=== PATIENT | female | born 1980 | race Caucasian/White ===

== ENCOUNTER 2018-02-26 18:48 | Emergency (ER) | payer MEDICAID ==
[~2018-02-26] VITALS: Ht 157.5 cm; Wt 80.7 kg
[2018-02-26 19:07] VITALS: BP 127/58
--- NOTE | 2018-02-26 20:42 | NUR ---
PT TO ER BED 2
--- NOTE | 2018-02-26 20:45 | NUR ---
37 Y/O F W/C/O MID ABDOMINLA PAIN /, VAGINAL YELLOWISH DISCHARGE, A LITTLE PAINFUL URINATION, WANTED TO BE TESTED FOR HIV, STD;PT DENIES N/V/D; SKIN IS INTACT, PINK/WARM/DRY; AAOX4, PERRL, WITH EVEN AND STEADY GAIT; LUNGS CLEAR BL, BREATHING UNLABORED; HR EVEN AND REGULAR, BL PERIPHERAL PULSES PRESENT; BS ACTIVE X4, NO TENDERNESS TO PALPATION, NO HEPATOSPLENOMEGALLY PALPATED, RESONANT TO PERCUSSION; PT DENIES ANY FEVER, CP, SOB, OR COUGH AT THIS TIME; PT STATES /10 PAIN AT THIS TIME; VSS; PATIENT POSITIONED FOR COMFORT; HOB ELEVATED; BEDRAILS UP X2; BED DOWN. HX; DENIES RX; DENIES
--- NOTE | 2018-02-26 21:40 | NUR ---
DR. ULLOA EVALUATING PT AT THE BEDSIDE
--- NOTE | 2018-02-26 22:12 | NUR ---
PT RESTING COMFORTABLY IN BED. NO S/S OF DISTRESS NOTED
[2018-02-26 22:34] VITALS: BP 122/68
--- NOTE | 2018-02-26 22:35 | NUR ---
Patient discharged with v/s stable. Written and verbal after care instructions given and explained. Patient verbalized understanding. Ambulatory with steady gait. All questions addressed prior to discharge. Advised to follow up with PMD.
[2018-03-01 06:24] LABS: CHLAMYDIA TRACHOMATIS AMP DNA Negative (Negative)
== END 2018-02-26 22:34 | disposition home or self-care (01) ==
LOC: MED 18:48
DX: Z11.3 Encounter for screening for infections with a predominantly sexual mode of transmission (principal); N89.8 Other specified noninflammatory disorders of vagina; F31.9 Bipolar disorder, unspecified; I10 Essential (primary) hypertension; Z86.73 Personal history of transient ischemic attack (TIA), and cerebral infarction without residual deficits
CPT/HCPCS: 36415; 81002; 81025; 86702; 87491; 99284

== ENCOUNTER 2020-02-14 06:23 | Emergency (ER) | payer SELFPAY ==
[~2020-02-14] VITALS: Ht 157.5 cm; Wt 67.6 kg
[2020-02-14 06:24] VITALS: BP 123/97
--- NOTE | 2020-02-14 06:35 | NUR ---
PT TAKEN TO BED 6
--- NOTE | 2020-02-14 07:07 | NUR ---
PT LYING IN BED TALKING TO SELF AND INTERACTING WITH INTERNAL STIMULI. NO ACUTE DISTRESS AT THIS TIME.
--- NOTE | 2020-02-14 07:11 | NUR ---
AMBULATES TO WITH STEADY GAIT.
--- NOTE | 2020-02-14 07:21 | NUR ---
REPORT GIVEN TO WALTER SPENCER. TRANSFER OF CARE AT THIS TIME.
--- NOTE | 2020-02-14 07:22 | NUR ---
REPORT RECEIVED FROM WALTER PEPPER.
[2020-02-14 08:08] LABS: BASOPHILS % (AUTO) 0.4 % (0.0-2.0); EOSINOPHILS # (AUTO) 0.1 K/uL (0-0.4); EOSINOPHILS % (AUTO) 2.2 % (0.0-4.0); HEMATOCRIT 31.8 % (36-48); HEMOGLOBIN 10.3 g/dL (12.0-16.0); LYMPHOCYTES # (AUTO) 1.9 K/uL (2.5-16.5); LYMPHOCYTES % (AUTO) 33.8 % (20.5-51.1); MEAN CORPUSCULAR HEMOGLOBIN 26 pg (27-31); MEAN CORPUSCULAR HGB CONC 33 g/dL (33-37); MONOCYTES # (AUTO) 0.9 K/uL (0.8-1.0); MONOCYTES % (AUTO) 16.2 % (1.7-9.3); NEUTROPHILS # (AUTO) 2.6 K/uL (1.8-7.7); NEUTROPHILS % (AUTO) 47.4 % (42.2-75.2); PLATELET COUNT (AUTO) 270 K/uL (140-450); RED BLOOD CELL COUNT(AUTO) 3.93 MIL/uL (4.20-5.40); RED CELL DISTRIBUTION WIDTH 16.9 % (11.6-13.7); WHITE BLOOD COUNT (AUTO) 5.6 K/uL (4.8-10.8)
--- NOTE | 2020-02-14 08:20 | NUR ---
PT EATING BREAKFAST, TOLERATING WELL.
[2020-02-14 08:43] LABS: ALBUMIN 3.6 g/dL (3.4-5.0); ANION GAP 11.5 (8-16); ASPARTATE AMINOTRANSFERASE 25 U/L (15-37); CARBON DIOXIDE 25.5 mmol/L (21-32); CHLORIDE 102 mmol/L (98-107); CREATININE 0.7 mg/dL (0.6-1.3); GFR ARICAN-AMERICAN 120 mL/min (>90); GLUCOSE 84 mg/dL (74-106); SODIUM SERUM 136 mmol/L (136-145); TOTAL BILIRUBIN 0.7 mg/dL (0.0-1.0); UREA NITROGEN, BLOOD 18 mg/dL (7-18)
--- NOTE | 2020-02-14 10:10 | NUR ---
URINE SAMPLE OBTAINED AND SENT TO THE LAB.
[2020-02-14 10:20] LABS: APPEARANCE,URINE CLEAR (CLEAR); BILIRUBIN,URINE NEGATIVE (NEGATIVE); BLOOD, URINE NEGATIVE (NEGATIVE); COLOR,URINE YELLOW (YELLOW); LEUKOCYTE ESTERASE ,URINE NEGATIVE (NEGATIVE); NITRITE, URINE NEGATIVE (NEGATIVE); UGLUCOSE NEGATIVE (NEGATIVE)
[2020-02-14 10:34] LABS: BARBITURATE, URINE NEGATIVE ng/ml (NEG <=200); BENZODIAZEPINE, URINE NEGATIVE ng/mL (NEG <=200); CANNABINOID, URINE NEGATIVE ng/mL (NEG <=50); COCAINE, URINE NEGATIVE ng/mL (NEG <=300); OPIATE, URINE NEGATIVE ng/mL (NEG <=2000); PHENCYCLIDINE SCREEN,URINE NEGATIVE ng/mL (NEG <=25)
[2020-02-14 10:53] VITALS: BP 118/95
== END 2020-02-14 10:53 | disposition home or self-care (01) ==
LOC: MED 06:23
DX: F41.9 Anxiety disorder, unspecified (principal); I11.0 Hypertensive heart disease with heart failure
CPT/HCPCS: 36415; 80053; 80305; 81003; 85025; 99283; G0482

== ENCOUNTER 2021-11-01 22:31 | Emergency (ER) | payer MEDICAID ==
[~2021-11-01] VITALS: Ht 162.6 cm; Wt 68.0 kg
[2021-11-01 22:40] VITALS: BP 145/115
[2021-11-01] MEDS ORDERED: diphenhydrAMINE 50 MG/ML VIAL ONE (23:55)
[2021-11-01] MEDS ORDERED: HALOPERIDOL IM 5 MG/ML VIAL ONE (23:55)
[2021-11-01] MEDS ORDERED: LORazepam 2 MG/ML VIAL ONE (23:56)
[2021-11-02] MEDS: LORazepam 2 MG/ML VIAL IM ONE (00:06)
[2021-11-02] MEDS: HALOPERIDOL IM 5 MG/ML VIAL IM ONE (00:06)
[2021-11-02] MEDS: diphenhydrAMINE 50 MG/ML VIAL IM ONE (00:07)
[2021-11-02 03:49] LABS: BASOPHILS % (AUTO) 0.3 % (0.0-2.0); EOSINOPHILS # (AUTO) 0.1 K/uL (0-0.4); EOSINOPHILS % (AUTO) 2.6 % (0.0-4.0); HEMATOCRIT 30.3 % (36-48); HEMOGLOBIN 9.9 g/dL (12.0-16.0); LYMPHOCYTES # (AUTO) 2.2 K/uL (2.5-16.5); LYMPHOCYTES % (AUTO) 49.7 % (20.5-51.1); MEAN CORPUSCULAR HEMOGLOBIN 26 pg (27-31); MEAN CORPUSCULAR HGB CONC 33 g/dL (33-37); MEAN CORPUSCULAR VOLUME 79.5 fL (80-94); MONOCYTES # (AUTO) 0.7 K/uL (0.8-1.0); MONOCYTES % (AUTO) 15.4 % (1.7-9.3); NEUTROPHILS # (AUTO) 1.4 K/uL (1.8-7.7); PLATELET COUNT (AUTO) 300 K/uL (140-450); RED BLOOD CELL COUNT(AUTO) 3.81 MIL/uL (4.20-5.40); RED CELL DISTRIBUTION WIDTH 20.3 % (11.6-13.7); WHITE BLOOD COUNT (AUTO) 4.5 K/uL (4.8-10.8)
[2021-11-02 04:09] LABS: ALBUMIN 3.3 g/dL (3.4-5.0); ANION GAP 9.8 (8-16); ASPARTATE AMINOTRANSFERASE 18 U/L (15-37); CARBON DIOXIDE 26.7 mmol/L (21-32); CHLORIDE 106 mmol/L (98-107); CREATININE 0.6 mg/dL (0.6-1.3); GFR ARICAN-AMERICAN 142 mL/min (>90); GLUCOSE 77 mg/dL (74-106); POTASSIUM 3.5 mmol/L (3.5-5.1); SODIUM SERUM 139 mmol/L (136-145); TOTAL BILIRUBIN 0.5 mg/dL (0.0-1.0); UREA NITROGEN, BLOOD 12 mg/dL (7-18)
[2021-11-02 05:30] LABS: BARBITURATE, URINE NEGATIVE ng/ml (NEG <=200); BENZODIAZEPINE, URINE NEGATIVE ng/mL (NEG <=200); CANNABINOID, URINE NEGATIVE ng/mL (NEG <=50); COCAINE, URINE NEGATIVE ng/mL (NEG <=300); PHENCYCLIDINE SCREEN,URINE NEGATIVE ng/mL (NEG <=25)
[2021-11-02 05:31] LABS: OPIATE, URINE NEGATIVE ng/mL (NEG <=2000)
[2021-11-03] MEDS: OLANZapine 5 MG ODT SL ONE (14:16)
[2021-11-03 16:40] VITALS: BP 102/60
[2021-11-03] MEDS ORDERED: OLANZapine 5 MG ODT SL ONE (21:00)
== END 2021-11-03 16:40 ==
LOC: MED 22:31 → UNDOADMIN 11-03 13:43 → MMU 11-03 13:43 → MED 11-03 16:40
DX: F23 Brief psychotic disorder (principal); Z20.822 Contact with and (suspected) exposure to COVID-19; F79 Unspecified intellectual disabilities; F15.129 Other stimulant abuse with intoxication, unspecified; I10 Essential (primary) hypertension; F31.9 Bipolar disorder, unspecified; F41.9 Anxiety disorder, unspecified; F17.210 Nicotine dependence, cigarettes, uncomplicated; F12.90 Cannabis use, unspecified, uncomplicated; Z86.73 Personal history of transient ischemic attack (TIA), and cerebral infarction without residual deficits
CPT/HCPCS: 36415; 80053; 80305; 85025; 87426; 87635; 93005; 96372; 99285; C9803; G0480; G0482; J1200; J1630; J2060

== ENCOUNTER 2021-12-23 21:11 | Emergency (ER) | payer SELFPAY ==
[~2021-12-23] VITALS: Ht 157.5 cm; Wt 59.0 kg
[2021-12-23 21:15] VITALS: BP 133/91
[2021-12-23] MEDS: OLANZapine 5 MG ODT SL ONE (21:25)
[2021-12-23] MEDS: OLANZapine 10 MG VIAL IM ONE (21:50)
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
[2021-12-23] MEDS: LORazepam 1 MG TAB PO ONE (22:10)
--- NOTE | 2021-12-24 | NUR ---
Patient appears to be resting comfortably in bed. Vital Signs within normal limits. Respirations even and unlabored.
[2021-12-24 01:22] LABS: BASOPHILS % (AUTO) 0.4 % (0.0-2.0); EOSINOPHILS # (AUTO) 0.1 K/uL (0-0.4); EOSINOPHILS % (AUTO) 0.8 % (0.0-4.0); HEMATOCRIT 35.1 % (36-48); HEMOGLOBIN 11.6 g/dL (12.0-16.0); LYMPHOCYTES # (AUTO) 2.8 K/uL (2.5-16.5); LYMPHOCYTES % (AUTO) 30.8 % (20.5-51.1); MEAN CORPUSCULAR HEMOGLOBIN 27 pg (27-31); MEAN CORPUSCULAR HGB CONC 33 g/dL (33-37); MEAN CORPUSCULAR VOLUME 80.5 fL (80-94); MONOCYTES # (AUTO) 0.8 K/uL (0.8-1.0); NEUTROPHILS # (AUTO) 5.4 K/uL (1.8-7.7); PLATELET COUNT (AUTO) 319 K/uL (140-450); RED BLOOD CELL COUNT(AUTO) 4.35 MIL/uL (4.20-5.40); RED CELL DISTRIBUTION WIDTH 19.2 % (11.6-13.7); WHITE BLOOD COUNT (AUTO) 9.2 K/uL (4.8-10.8)
[2021-12-24 01:39] LABS: ALBUMIN 3.4 g/dL (3.4-5.0); ANION GAP 11.6 (8-16); ASPARTATE AMINOTRANSFERASE 35 U/L (15-37); CARBON DIOXIDE 23.8 mmol/L (21-32); CHLORIDE 103 mmol/L (98-107); CREATININE 0.7 mg/dL (0.6-1.3); GFR ARICAN-AMERICAN 119 mL/min (>90); GLUCOSE 82 mg/dL (74-106); POTASSIUM 3.4 mmol/L (3.5-5.1); SODIUM SERUM 135 mmol/L (136-145); TOTAL BILIRUBIN 0.5 mg/dL (0.0-1.0); UREA NITROGEN, BLOOD 9 mg/dL (7-18)
[2021-12-24 01:40] LABS: ACETAMINOPHEN < 0.5 ug/ml (10-30); SALICYLATE < 2.8 mg/dL (2.8-20.0)
--- NOTE | 2021-12-24 01:50 | NUR ---
TRIED TO OBTAIN URINE. PT NOT ABLE TO GIVE AT THIS TIME
--- NOTE | 2021-12-24 04:40 | NUR ---
ODESSA COLLECTED AND TAKEN TO LAB
--- NOTE | 2021-12-24 05:11 | NUR ---
PT SLEEPING. X 2 SIDE RAILS UP.
--- NOTE | 2021-12-24 06:29 | NUR ---
Patient appears to be resting comfortably in bed. Vital Signs within normal limits. Respirations even and unlabored.
--- NOTE | 2021-12-24 06:30 | NUR ---
Chart checked and completed.
--- NOTE | 2021-12-24 07:20 | NUR ---
Pt report given to [facility]. Transfer of care at this time.
--- NOTE | 2021-12-24 07:21 | NUR ---
REPORT RECEIVED FROM SAMARA ROSARIO. ASSUMED CARE AT THIS TIME.
--- NOTE | 2021-12-24 07:30 | NUR ---
PT AT REST AND SLEEPING. NO VISIBLE DISTRESS. PT IN VIEW , BED AT LOWEST POSITION, BED RAIL UP X2
--- NOTE | 2021-12-24 08:40 | NUR ---
pt encouraged to use restroom and give urine sample. "not right now"
--- NOTE | 2021-12-24 11:55 | NUR ---
PT ON TELEPSY[employer] VIDEO CALL FOR EVALUATION
--- NOTE | 2021-12-24 12:44 | NUR ---
pt re encouraged to use rr, "in a little bit"
--- NOTE | 2021-12-24 13:40 | NUR ---
CALLED JOE , PT PERSON TO NOTIFY, REGARDING PT DC AND ASK FOR ADDRESS TO SEND HOME. "WILL CALL YOU GUYS BACK"
[2021-12-24] MEDS ORDERED: OLAN2.5T1 PO (13:51)
[2021-12-24 14:05] VITALS: BP 130/71
--- NOTE | 2021-12-24 14:05 | NUR ---
Patient discharged with v/s stable. Written and verbal after care instructions FOR ALCOHOL USE DISCORDER AND PSYCHOSIS given and explained. Patient alert, oriented and verbalized understanding of instructions. Ambulatory with steady gait. All questions addressed prior to discharge. ID band removed. Patient advised to follow up with PMD. Rx of ZYPREXA given. Opportunity to ask questions provided and answered.
--- NOTE | 2021-12-24 14:05 | NUR ---
PT D/C AND PROVIDED WITH FOOD. ALSO PROVIDED W/ HOMELESS AND SUBST[place] [id number] [facility] [place] [facility] [id number]
== END 2021-12-24 14:05 | disposition home or self-care (01) ==
LOC: MED 21:11
DX: F25.9 Schizoaffective disorder, unspecified (principal); Z20.822 Contact with and (suspected) exposure to COVID-19; I10 Essential (primary) hypertension; Z86.73 Personal history of transient ischemic attack (TIA), and cerebral infarction without residual deficits
CPT/HCPCS: 36415; 80053; 84703; 85025; 87426; 99285; G0480; G0482

== ENCOUNTER 2023-01-28 16:54 | Emergency (ER) | payer MEDICAID ==
[~2023-01-28] VITALS: Ht 157.5 cm; Wt 72.6 kg
[~2023-01-28 16:54] MED LIST: OLAN2.5T1 PO
[2023-01-28 17:10] VITALS: PULSE 89; RESP 18; TEMP 97.8; O2SAT 98
[2023-01-28 17:51] LABS: APPEARANCE,URINE SL CLOUDY (CLEAR); BILIRUBIN,URINE 1+ (NEGATIVE); BLOOD, URINE TRACE-I (NEGATIVE); COLOR,URINE YELLOW (YELLOW); LEUKOCYTE ESTERASE ,URINE NEGATIVE (NEGATIVE); NITRITE, URINE NEGATIVE (NEGATIVE); PROTEIN,URINE TRACE (NEGATIVE); UGLUCOSE NEGATIVE (NEGATIVE)
[2023-01-28 17:53] LABS: ICTOTEST NEGATIVE (NEGATIVE)
[2023-01-28 17:55] LABS: BACTERIA,URINE 2+ /HPF (None Seen); MUCUS,URINE 3+ /LPF (None Seen); SQUAMOUS EPITHELIAL CELL,UR 20-50 /LPF (0-3 (FEW)); TRICHOMONAS,URINE None Seen /HPF (None Seen); WBC,URINE 0-5 /HPF (0-5); YEAST,URINE None Seen /HPF (None Seen)
[2023-01-28] MEDS ORDERED: ONDANSETRON 4 MG/2 ML VIAL IVP ONE (19:00)
[2023-01-28] MEDS ORDERED: NACL 0.9% 1,000 ML IV ONE (19:00)
[2023-01-28 19:25] LABS: BASOPHILS % (AUTO) 0.3 % (0.0-2.0); EOSINOPHILS # (AUTO) 0.1 K/uL (0-0.4); HEMATOCRIT 33.7 % (36-48); HEMOGLOBIN 11.1 g/dL (12.0-16.0); LYMPHOCYTES # (AUTO) 2.7 K/uL (2.5-16.5); LYMPHOCYTES % (AUTO) 37.7 % (20.5-51.1); MEAN CORPUSCULAR HEMOGLOBIN 27 pg (27-31); MEAN CORPUSCULAR HGB CONC 33 g/dL (33-37); MEAN CORPUSCULAR VOLUME 80.8 fL (80-94); MONOCYTES # (AUTO) 0.8 K/uL (0.8-1.0); MONOCYTES % (AUTO) 10.4 % (1.7-9.3); NEUTROPHILS # (AUTO) 3.7 K/uL (1.8-7.7); NEUTROPHILS % (AUTO) 50.6 % (42.2-75.2); PLATELET COUNT (AUTO) 244 K/uL (140-450); RED BLOOD CELL COUNT(AUTO) 4.17 MIL/uL (4.20-5.40); RED CELL DISTRIBUTION WIDTH 16.9 % (11.6-13.7); WHITE BLOOD COUNT (AUTO) 7.2 K/uL (4.8-10.8)
[2023-01-28 19:37] LABS: ALBUMIN 2.8 g/dL (3.4-5.0); ANION GAP 9.7 (8-16); CARBON DIOXIDE 29.3 mmol/L (21-32); TOTAL BILIRUBIN 0.3 mg/dL (0.0-1.0); TOTAL PROTEIN, SERUM 6.7 g/dL (6.4-8.2)
[2023-01-28] MEDS ORDERED: ONDA-188 PO (21:05)
[2023-01-28 21:29] VITALS: BP 102/70; PULSE 57; RESP 18; TEMP 97.8; O2SAT 100
== END 2023-01-28 21:29 | disposition home or self-care (01) ==
LOC: MED 16:54
DX: R11.2 Nausea with vomiting, unspecified (principal); R10.9 Unspecified abdominal pain; Z79.899 Other long term (current) drug therapy
CPT/HCPCS: 36415; 80053; 81001; 81025; 83690; 85025; 87086; 93005; 96361; 96374; 99284; J2405

== ENCOUNTER 2023-05-27 22:48 | Emergency (ER) | payer SELFPAY ==
[~2023-05-27] VITALS: Ht 154.9 cm; Wt 68.0 kg
[~2023-05-27 22:48] MED LIST changes: +ONDA-188 PO
[2023-05-27 22:50] VITALS: BP 122/85; PULSE 108; RESP 16; TEMP 97.8; O2SAT 100
[2023-05-28] MEDS ORDERED: HYDROcodone/APAP 5/325 MG 1 TAB TAB PO ONE (01:15)
[2023-05-28] MEDS ORDERED: CLINDAMYCIN 150 MG CAP PO ONE (01:15)
[2023-05-28] MEDS ORDERED: IBUPROFEN 600 MG TAB PO ONE (01:15)
[2023-05-28] MEDS ORDERED: CLIN150C1 PO (02:10)
[2023-05-28] MEDS ORDERED: IBUP-2213 PO (02:12)
[2023-05-29] MEDS ORDERED: IBUP-1842 PO (09:11)
[2023-05-29] MEDS ORDERED: OLAN2.5T1 PO (09:11)
[2023-05-29] MEDS ORDERED: CLIN300C2 PO (09:11)
== END 2023-05-28 02:22 | disposition home or self-care (01) ==
LOC: MED 22:48
DX: S01.531A Puncture wound without foreign body of lip, initial encounter (principal); I10 Essential (primary) hypertension; Z86.73 Personal history of transient ischemic attack (TIA), and cerebral infarction without residual deficits; Z79.899 Other long term (current) drug therapy; X58.XXXA Exposure to other specified factors, initial encounter; Y93.89 Activity, other specified; Y92.89 Other specified places as the place of occurrence of the external cause; Y99.8 Other external cause status
CPT/HCPCS: 99283

== ENCOUNTER 2023-05-29 08:33 | Emergency (ER) | payer SELFPAY ==
[~2023-05-29] VITALS: Ht 162.6 cm; Wt 61.7 kg
[~2023-05-29 08:33] MED LIST changes: +CLIN150C1 PO; +IBUP-2213 PO
[2023-05-29 08:48] VITALS: BP 104/76; PULSE 88; RESP 18; TEMP 98; O2SAT 98
[2023-05-29] MEDS ORDERED: IBUP-1842 PO (09:11)
[2023-05-29] MEDS ORDERED: CLIN300C2 PO (09:11)
[2023-05-29] MEDS ORDERED: OLAN2.5T1 PO (09:11)
[2023-05-29 09:36] VITALS: O2SAT 98
[2023-05-29 10:20] VITALS: BP 104/76; PULSE 88; RESP 18; TEMP 98; O2SAT 98
== END 2023-05-29 10:27 | disposition home or self-care (01) ==
LOC: MED 08:33
DX: L03.211 Cellulitis of face (principal); F20.9 Schizophrenia, unspecified; I10 Essential (primary) hypertension; F41.9 Anxiety disorder, unspecified; F17.210 Nicotine dependence, cigarettes, uncomplicated; Z86.73 Personal history of transient ischemic attack (TIA), and cerebral infarction without residual deficits; Z90.49 Acquired absence of other specified parts of digestive tract; Z98.890 Other specified postprocedural states; Z79.899 Other long term (current) drug therapy; Z79.1 Long term (current) use of non-steroidal anti-inflammatories (NSAID); Z79.2 Long term (current) use of antibiotics
CPT/HCPCS: 99283

== ENCOUNTER 2023-07-14 14:27 | Emergency (ER) | payer MEDICAID ==
[~2023-07-14] VITALS: Ht 167.6 cm; Wt 72.6 kg
[~2023-07-14 14:27] MED LIST changes: +CLIN300C2 PO; +IBUP-1842 PO
[2023-07-14 14:28] VITALS: BP 99/61; PULSE 102; RESP 20; TEMP 99.2; O2SAT 97
== END 2023-07-14 14:45 ==
LOC: MED 14:27
DX: R45.1 Restlessness and agitation (principal); I10 Essential (primary) hypertension; Z02.89 Encounter for other administrative examinations; Z86.73 Personal history of transient ischemic attack (TIA), and cerebral infarction without residual deficits
CPT/HCPCS: 99283